=== PATIENT | male | born 1970 | race Caucasian/White ===

== ENCOUNTER 2023-07-01 13:52 | Emergency (ER) | payer MEDICARE ==
[2023-07-01] VITALS (13 sets, daily range): BP systolic 124–159; BP diastolic 61–91
[~2023-07-01] VITALS: Ht 180.3 cm; Wt 115.6 kg
[2023-07-01 15:28] LABS: BASO% 0.9 % (0-3); EOS% 7.7 % (0-8); HEMATOCRIT 41.9 % (39.0-50.0); HEMOGLOBIN 13.8 g/dl (14.0-18.0); IMMATURE GRANULOCYTES 0.4 % (0.0-5.0); LYMPH% 20.8 % (15-41); MEAN CELL VOLUME 82.2 fL CALC (80.0-100.0); MEAN CORPUSCULAR HGB 27.1 pG CALC (26.0-32.0); MEAN CORPUSCULAR HGB CONC 32.9 g/dL CAL (32.0-36.0); MONO% 7.6 % (2-13); NEUT# 8.07 thou/uL (1.82-7.42); NEUT% 62.6 % (42-76); RED BLOOD COUNT 5.1 mill/uL (4.70-6.10)
[2023-07-01 15:40] LABS: ALBUMIN 4.4 g/dL (3.2-5.0); BILIRUBIN, TOTAL 0.6 mg/dL (0.2-1.3); CREATININE 2.1 mg/dL (0.7-1.3); POTASSIUM 3.8 mmol/l (3.5-5.1); TOTAL PROTEIN 8.1 g/dL (6.3-8.2)
== END 2023-07-01 19:55 | disposition left against medical advice (07) ==
LOC: ED 13:52
PROVIDERS: Family Medicine
DX: E11.621 Type 2 diabetes mellitus with foot ulcer (principal); L97.429 Non-pressure chronic ulcer of left heel and midfoot with unspecified severity; E11.610 Type 2 diabetes mellitus with diabetic neuropathic arthropathy; E11.22 Type 2 diabetes mellitus with diabetic chronic kidney disease; N18.32 Chronic kidney disease, stage 3b; Z86.14 Personal history of Methicillin resistant Staphylococcus aureus infection; Z89.511 Acquired absence of right leg below knee; Z20.822 Contact with and (suspected) exposure to COVID-19; Z53.29 Procedure and treatment not carried out because of patient's decision for other reasons

== ENCOUNTER 2024-10-09 02:49 | Observation (INO) | payer MEDICARE ==
[2024-10-09] VITALS (13 sets, daily range): BP systolic 156–183; BP diastolic 78–100
[~2024-10-09] VITALS: Ht 180.3 cm; Wt 108.6 kg
[~2024-10-09 02:49] MED LIST: AMLODIPINE BESYL5 MG PO; FARXIGA10 MG PO; GABAPENTIN300 M2 PO; HUMULIN R SC; LOPRESSOR 550 MG/TAB PO; LOSARTAN POTASS50 MG PO; PRAMIPEXOLE DI0.5 MG PO; ROSUVASTATIN CA10 MG PO
--- NOTE | 2024-10-09 03:15 | NUR ---
PT ARRIVED TO ROOM 3 FOR TRIAGE AT BEDSIDE.
[2024-10-09] MEDS ORDERED: SODIUM CHLORIDE 0.9% 1,000 ML IV STA (03:19)
[2024-10-09] MEDS ORDERED: KETOROLAC TROMETHAMINE 30 MG/ML SDV IV ONE (03:20)
[2024-10-09] MEDS ORDERED: PROMETHAZINE HCL 25 MG/ML AMP IV ONE (03:20)
[2024-10-09 03:42] LABS: BASO% 0.6 % (0-3); EOS% 0.4 % (0-8); HEMATOCRIT 39.4 % (39.0-50.0); HEMOGLOBIN 13.1 g/dl (14.0-18.0); IMMATURE GRANULOCYTES 0.8 % (0.0-5.0); LYMPH% 11.9 % (15-41); MEAN CELL VOLUME 82.3 fL CALC (80.0-100.0); MEAN CORPUSCULAR HGB 27.3 pG CALC (26.0-32.0); MEAN CORPUSCULAR HGB CONC 33.2 g/dL CAL (32.0-36.0); MONO% 8.2 % (2-13); NEUT# 9.93 thou/uL (1.82-7.42); NEUT% 78.1 % (42-76); RED BLOOD COUNT 4.79 mill/uL (4.70-6.10)
[2024-10-09 03:58] LABS: CREATININE 2.1 mg/dL (0.7-1.3); MAGNESIUM 1.9 mg/dL (1.6-2.3)
[2024-10-09 04:01] LABS: ALBUMIN 4.8 g/dL (3.2-5.0); BILIRUBIN, TOTAL 0.6 mg/dL (0.2-1.3); TOTAL PROTEIN 8.3 g/dL (6.3-8.2)
--- NOTE | 2024-10-09 05:31 | NUR ---
Pt. rechecked post pain med administration. Pain level (1-10): 0/10 Pain better/worse: BETTER PER PT NAUSEA HAS RESOLVED AT THIS TIME. URINE COLLECTED AND SENT TO LAB.
[2024-10-09 05:37] LABS: URINE BLOOD DIPSTICK Small (NEGATIVE); URINE GLUCOSE - DIPSTICK 500 mg/dL (NEGATIVE); URINE KETONE Negative (NEGATIVE); URINE LEUK ESTERASE Negative (NEGATIVE); URINE NITRITE - DIPSTICK Negative (Negative); URINE PH 5.5 (4.5-8.0); URINE PROTEIN - DIPSTICK >=300 mg/dL (NEG-TRACE); URINE UROBILINOGEN - DIPSTICK 0.2 E.U./dL (0.2)
[2024-10-09 05:46] LABS: URINE BILIRUBIN - DIPSTICK Negative (NEGATIVE); URINE COLOR Yellow
[2024-10-09 05:47] LABS: URINE BACTERIA MODERATE hpf; URINE EPITHELIAL CELLS FEW EPI/hpf (0-FEW)
[2024-10-09 05:48] LABS: URINE COARSE GRANULAR CAST RARE lpf; URINE FINE GRAN CAST FEW lpf; URINE HYALINE CAST RARE lpf (NONE-RARE)
[2024-10-09] MEDS ORDERED: SODIUM CHLORIDE 0.9% 1,000 ML IV ONE (06:20)
[2024-10-09] MEDS ORDERED: LABETALOL HCL 20 MG/ 4 ML CARTRG IV ONE (06:30)
--- NOTE | 2024-10-09 07:31 | NUR ---
Reassessment of patient completed. No distress noted.
[2024-10-09] MEDS ORDERED: FENOFIBRATE160 MG PO (08:11)
[2024-10-09] MEDS ORDERED: ICOSAPENT ETHYL1 GM PO (08:14)
[2024-10-09] MEDS ORDERED: MAGNESIUM HYDROXIDE 30 ML UDC PO PRN (08:15)
[2024-10-09] MEDS ORDERED: SODIUM CHLORIDE 0.9% 1,000 ML IV PRN (08:15)
[2024-10-09] MEDS ORDERED: ACETAMINOPHEN 325 MG/TAB PO PRN (08:15)
--- NOTE | 2024-10-09 08:35 | NUR ---
FIRST ATTEMPT TO CALL REPORT, NURSE TO RETURN CALL
--- NOTE | 2024-10-09 09:21 | NUR ---
NURSE TO NURSE REPORT COMPLETED
--- NOTE | 2024-10-09 09:27 | NUR ---
PATIENT ARRIVED TO SD FROM THE ED TO ROOM 273. PATIENT A&OX3. BREATHING UNLABORED ON ROOM AIR. IV IN LAC SL;SITE CLEAN AND INTACT. PT DENIES ANY PAIN OR N/D/V AT THIS TIME. ASSESSMENT COMPLETED. 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 PT EDUCATED SUPERVISOR WET ROOM LIGHT USE;PT VERBALIZED UNDERSTANDING OF USE. BED IN LOWEST POSITION. PERSONAL ITEMS WITHIN REACH. NO OTHER NEEDS AT THIS TIME. POC ONGOING.
[2024-10-09] MEDS ORDERED: DEXTROSE 250 ML IV PRN (10:10)
[2024-10-09] MEDS ORDERED: METOPROLOL TARTRATE 50 MG/TAB PO SCH (11:00)
[2024-10-09] MEDS ORDERED: INSULIN LISPRO 100 UNITS/ML ML SC SCH (11:00)
[2024-10-09] MEDS ORDERED: amLODIPine BESYLATE 5 MG/TAB PO SCH (11:00)
[2024-10-09] MEDS ORDERED: Pantoprazole Sodium 40 MG VIAL (Protonix) IV SCH (11:00)
--- NOTE | 2024-10-09 12:44 | NUR ---
PATIENT SITTING UP IN BED WATCHING TV. BREATHING UNLABORED ON ROOM AIR. IV INFUSING FLUIDS PER EMAR;SITE CLEAN AND INTACT. PT DENIES ANY PAIN OR N/D/V AT THIS TIME. BED IN LOWEST POSITION. CALL LIGHT WITHIN REACH. POC ONGOING
--- NOTE | 2024-10-09 13:25 | NUR ---
Patient does not meet criteria for flu vaccine administration. Flucelvax administered on 07/14/24 per immunization records.
[2024-10-09] MEDS ORDERED: Heparin SODIUM (Porcine) 5,000 UNITS/ML SDV SC SCH (14:00)
--- NOTE | 2024-10-09 16:20 | NUR ---
PATIENT LYING IN BED WATCHING TV. BREATHING UNLABORED ON ROOM AIR. IV INFUSING FLUIDS PER EMAR;SITE CLEAN AND INTACT. PT DENIES ANY PAIN OR NEEDING ANYTHING AT THIS TIME. BED IN LOWEST POSITION. NO NEEDS AT THIS TIME. POC ONGOING.
--- NOTE | 2024-10-09 19:15 | NUR ---
PATIENT OBSERVED SITTING UP IN BED. ALERT AND ABLE TO MAKE NEEDS KNOWN. ASSESSMENT COMPLETE. DRESSING TO BOTTOM OF LEFT FOOT CDI. NO COMPLAINTS OF PAIN TO SITE. NO DISTRESS NOTED. SPOKE WITH PATIENT ABOUT HIS INSULIN PUMP. PER DOCTORS NOTE PATIENT IS TO HAVE INSULIN PER EMAR, AND HIS INSULIN PUMP ON HOLD. PER PATIENT HE IS REFUSING OUR SLIDING SCALE AND VOICED THAT HIS INSULIN IS DIFFERENT AND THAT HE CAN SHUT HIS PUMP OFF BUT AFTER 2 HOURS IT TURNS BACK ON BY ITSELF. PATIENT IS ALLOWING STAFF TO CHECK HIS BLOOD SUGAR WITH OUR HOSPITAL MACHINES. PATIENTS RIGHT LEG PROSTHETIC IS IN ROOM. HE DENIES NEEDING ANYTHING AT THIS TIME. BED IN LOW POSITION. CALL [facility] IN REACH.
--- NOTE | 2024-10-09 21:19 | NUR ---
INFORMED ASSISTANT WAREHOUSE MANAGER PROVIDER OF PATIENT REFUSING OUR INSULIN PER DOCTORS ORDERS AND WANTING TO USE HIS INSULIN PUMP STILL.
[2024-10-09] MEDS ORDERED: losartan PO (22:00)
--- NOTE | 2024-10-10 00:15 | NUR ---
PATIENT REMAINS RESTING IN BED. DENIES NEEDING ANYTHING AT THIS TIME. NO COMPLAINTS AT THIS TIME. BED REMAINS IN LOW POSITION. CALL [facility] IN REACH.
[2024-10-10 03:43] VITALS: BP 155/98
--- NOTE | 2024-10-10 03:43 | NUR ---
PATIENT REMAINS RESTING IN BED. DENIES NEEDING ANYTHING AT THIS TIME. BED REMAINS IN LOW POSITION. CALL [facility] IN REACH.
[2024-10-10 05:29] LABS: BASO% 0.7 % (0-3); EOS% 4.2 % (0-8); HEMATOCRIT 38.6 % (39.0-50.0); HEMOGLOBIN 12.6 g/dl (14.0-18.0); IMMATURE GRANULOCYTES 0.4 % (0.0-5.0); MEAN CORPUSCULAR HGB 27.1 pG CALC (26.0-32.0); MEAN CORPUSCULAR HGB CONC 32.6 g/dL CAL (32.0-36.0); MONO% 9.4 % (2-13); NEUT# 6.24 thou/uL (1.82-7.42); NEUT% 61.3 % (42-76); RED BLOOD COUNT 4.65 mill/uL (4.70-6.10); RED CELL DISTRI WIDTH 13.4 % (11.5-15.5)
[2024-10-10 05:52] LABS: BILIRUBIN, TOTAL 0.5 mg/dL (0.2-1.3); CHOLESTEROL HDL RATIO 3.6 (<4.4 (CALC)); CREATININE 1.8 mg/dL (0.7-1.3); MAGNESIUM 1.9 mg/dL (1.6-2.3); TOTAL PROTEIN 6.9 g/dL (6.3-8.2)
--- NOTE | 2024-10-10 06:19 | NUR ---
INFORMED CARDIOGRAPH OPERATOR PROVIDER OF PATIENTS CRITICAL GLUCOSE. DIET ADVANCED PER PROVIDER.
--- NOTE | 2024-10-10 06:24 | NUR ---
GLUCOSE CHECKED BY STAFF, 112.
--- NOTE | 2024-10-10 07:55 | NUR ---
PATIENT AWAKE SITTING UP IN BED;A&OX3. BREATHING UNLABORED ON ROOM AIR. IV IN LAC SL;SITE CLEAN AND INTACT. PT DENIES ANY PAIN OR N/D/V AT THIS TIME. PT STATES HE WOULD LIKE TO GO HOME;INFORMED HIM THAT THE DOCTOR WILL BE IN SHORTLY TO DISCUSS POC. NO OTHER NEEDS AT THIS TIME. BED IN LOWEST POSITION. CALL LIGHT WITHIN REACH. POC ONGOING.
[2024-10-10 08:26] VITALS: BP 155/98
--- NOTE | 2024-10-10 10:50 | NUR ---
Discharge instructions given. Patient verbalizes understanding of same. Discharged in stable condition via Ambulatory to Home with spouse. All belongings sent with pt.
== END 2024-10-10 10:49 | disposition home or self-care (01) ==
LOC: ED 02:49 → ED-I 07:30 → ED 07:55 → MS2 07:56
PROVIDERS: Family Medicine; Nurse Practitioner Family; ADMIT Internal Medicine; ATTEND Internal Medicine
DX: K85.90 Acute pancreatitis without necrosis or infection, unspecified (principal); N17.9 Acute kidney failure, unspecified; E86.0 Dehydration; I12.9 Hypertensive chronic kidney disease with stage 1 through stage 4 chronic kidney disease, or unspecified chronic kidney disease; E11.22 Type 2 diabetes mellitus with diabetic chronic kidney disease; N18.30 Chronic kidney disease, stage 3 unspecified; E11.621 Type 2 diabetes mellitus with foot ulcer; L97.428 Non-pressure chronic ulcer of left heel and midfoot with other specified severity; E11.610 Type 2 diabetes mellitus with diabetic neuropathic arthropathy; Z79.4 Long term (current) use of insulin; Z89.511 Acquired absence of right leg below knee; Z79.899 Other long term (current) drug therapy; Z89.422 Acquired absence of other left toe(s)
CPT/HCPCS: G0378; J1644; J1815; J2470; J2550

== ENCOUNTER 2024-11-02 13:34 | Inpatient (IN) | payer MEDICARE ==
[2024-11-02] VITALS (39 sets, daily range): BP systolic 134–208; BP diastolic 75–111
[~2024-11-02] VITALS: Ht 180.3 cm; Wt 107.0 kg
[~2024-11-02 13:34] MED LIST changes: +FENOFIBRATE160 MG PO; +ICOSAPENT ETHYL1 GM PO; +losartan PO
[2024-11-02] MEDS ORDERED: LOSARTAN POTASS50 MG PO (13:53)
[2024-11-02] MEDS ORDERED: HUMULIN R500 UNIT/M (13:53)
[2024-11-02] MEDS ORDERED: DULOXETINE HCL30 MG PO (13:55)
[2024-11-02] MEDS ORDERED: SODIUM CHLORIDE 0.9% 1,000 ML IV ONE ×2 (13:55→15:25)
[2024-11-02] MEDS ORDERED: DULOXETINE HCL60 MG PO (13:55)
[2024-11-02] MEDS ORDERED: ONDANSETRON HCl 4 MG/2 ML SDV IV ONE (13:55)
[2024-11-02 14:20] LABS: BASO% 0.8 % (0-3); HEMATOCRIT 40.3 % (39.0-50.0); HEMOGLOBIN 13.3 g/dl (14.0-18.0); IMMATURE GRANULOCYTES 0.3 % (0.0-5.0); LYMPH% 15.1 % (15-41); MEAN CELL VOLUME 81.1 fL CALC (80.0-100.0); MEAN CORPUSCULAR HGB 26.8 pG CALC (26.0-32.0); MONO% 5.5 % (2-13); NEUT# 8.37 thou/uL (1.82-7.42); NEUT% 76.3 % (42-76); RED BLOOD COUNT 4.97 mill/uL (4.70-6.10); RED CELL DISTRI WIDTH 12.8 % (11.5-15.5)
[2024-11-02 14:25] LABS: BILIRUBIN, TOTAL 0.7 mg/dL (0.2-1.3); BUN 42 mg/dL (9-20); BUN/CREATININE RATIO 20 (12-20 (CALC)); CHLORIDE 96 mmol/l (95-108); CREATININE 2.1 mg/dL (0.7-1.3); ESTIMATED GFR 36 ML/MIN (>=90 (CALC)); POTASSIUM 4.8 mmol/l (3.5-5.1); SGOT/AST 32 u/l (17-59)
[2024-11-02 14:35] LABS: URINE BILIRUBIN - DIPSTICK Negative (NEGATIVE); URINE BLOOD DIPSTICK Trace-lysed (NEGATIVE); URINE GLUCOSE - DIPSTICK 500 mg/dL (NEGATIVE); URINE KETONE 15 mg/dL (NEGATIVE); URINE LEUK ESTERASE Negative (NEGATIVE); URINE NITRITE - DIPSTICK Negative (Negative); URINE PH 5.5 (4.5-8.0); URINE PROTEIN - DIPSTICK 100 mg/dL (NEG-TRACE); URINE SPECIFIC GRAVITY 1.015; URINE UROBILINOGEN - DIPSTICK 0.2 E.U./dL (0.2)
[2024-11-02 14:36] LABS: ALBUMIN 4.9 g/dL (3.2-5.0); ALKALINE PHOSPHATASE 110 u/l (38-126); ANION GAP 27 (6-22 (CALC)); CARBON DIOXIDE 15 mmol/l (22-30); SODIUM 133 mmol/l (137-146); TOTAL PROTEIN 8.4 g/dL (6.3-8.2)
[2024-11-02 14:47] LABS: URINE COLOR Yellow
[2024-11-02 14:50] LABS: URINE COARSE GRANULAR CAST FEW lpf; URINE SQUAMOUS EPITHELIAL CELL FEW EPI/hpf (0-FEW)
[2024-11-02 14:55] LABS: LIPASE 2089 u/l (23-300)
[2024-11-02] MEDS ORDERED: INSULIN REGULAR (HUMAN) 100 UNIT/ML INJ IV ONE (15:05)
[2024-11-02] MEDS ORDERED: INSULIN REGULAR (HUMAN) IN SOD 100 ML IV ONE (15:05)
[2024-11-02] MEDS ORDERED: POTASSIUM CHLORIDE 20MEQ 100 ML IV PRN (16:55)
[2024-11-02] MEDS ORDERED: DEXTROSE 5% w/NACL 0.45 1,000 ML IV PRN (16:55)
[2024-11-02] MEDS ORDERED: INSULIN REGULAR (HUMAN) IN SOD 100 ML IV PRN (16:55)
[2024-11-02] MEDS ORDERED: D5 1/2 NaCL W/KCL 20MEQ 1,000 ML IV PRN (16:55)
[2024-11-02] MEDS ORDERED: LACTATED RINGER'S 1,000 ML IV PRN (17:00)
[2024-11-02] MEDS ORDERED: HYDROmorphone HCL 2 MG/AMP IV PRN (17:00)
[2024-11-02] MEDS ORDERED: INSULIN PUMP (19:00)
[2024-11-02 20:22] LABS: POTASSIUM 4.1 mmol/l (3.5-5.1)
[2024-11-03] VITALS (36 sets, daily range): BP systolic 132–210; BP diastolic 66–121
[2024-11-03 00:58] LABS: CREATININE 1.9 mg/dL (0.7-1.3); POTASSIUM 4.2 mmol/l (3.5-5.1)
[2024-11-03] MEDS ORDERED: hydrALAZINE HCL 20 MG/ML VIAL(1 ML) IV PRN ×2 (02:35→18:35)
[2024-11-03 05:11] LABS: BASO% 0.7 % (0-3); EOS% 3.8 % (0-8); HEMATOCRIT 39.5 % (39.0-50.0); HEMOGLOBIN 13.3 g/dl (14.0-18.0); IMMATURE GRANULOCYTES 0.3 % (0.0-5.0); LYMPH% 19.9 % (15-41); MEAN CELL VOLUME 81.6 fL CALC (80.0-100.0); MEAN CORPUSCULAR HGB 27.5 pG CALC (26.0-32.0); MEAN CORPUSCULAR HGB CONC 33.7 g/dL CAL (32.0-36.0); NEUT# 6.8 thou/uL (1.82-7.42); NEUT% 67.3 % (42-76); RED BLOOD COUNT 4.84 mill/uL (4.70-6.10); RED CELL DISTRI WIDTH 12.8 % (11.5-15.5)
[2024-11-03] MEDS ORDERED: LABETALOL HCL 20 MG/ 4 ML CARTRG IV SCH (05:20)
[2024-11-03 05:31] LABS: ALBUMIN 4.4 g/dL (3.2-5.0); BILIRUBIN, TOTAL 0.5 mg/dL (0.2-1.3); CREATININE 1.8 mg/dL (0.7-1.3); MAGNESIUM 2.1 mg/dL (1.6-2.3); POTASSIUM 4.3 mmol/l (3.5-5.1); TOTAL PROTEIN 7.6 g/dL (6.3-8.2)
[2024-11-03] MEDS ORDERED: ONDANSETRON HCl 4 MG/2 ML SDV IV PRN (06:25)
[2024-11-03 07:44] LABS: AMYLASE 138 u/l (30-110); LIPASE 801 u/l (23-300)
[2024-11-03] MEDS ORDERED: DEXTROSE 250 ML IV PRN (08:50)
[2024-11-03] MEDS ORDERED: SODIUM CHLORIDE 0.9% 1,000 ML IV PRN (08:50)
[2024-11-03] MEDS ORDERED: INSULIN GLARGINE 100 UNITS/ML SC SCH ×2 (09:30→11:30)
[2024-11-03 09:53] LABS: CREATININE 1.8 mg/dL (0.7-1.3); POTASSIUM 4.2 mmol/l (3.5-5.1)
[2024-11-03] MEDS ORDERED: INSULIN LISPRO 100 UNITS/ML ML SC SCH ×2 (11:00→11:30)
[2024-11-03] MEDS ORDERED: amLODIPine BESYLATE 5 MG/TAB PO SCH ×2 (13:00→16:00)
[2024-11-03] MEDS ORDERED: LOSARTAN Potassium 50 MG/TAB PO SCH ×2 (13:00→16:00)
[2024-11-03] MEDS ORDERED: METOPROLOL TARTRATE 50 MG/TAB PO SCH (13:00)
[2024-11-04] VITALS (23 sets, daily range): BP systolic 101–176; BP diastolic 44–86
[2024-11-04 05:19] LABS: BILIRUBIN, TOTAL 0.6 mg/dL (0.2-1.3); CREATININE 1.7 mg/dL (0.7-1.3); MAGNESIUM 1.9 mg/dL (1.6-2.3); POTASSIUM 3.9 mmol/l (3.5-5.1); TOTAL PROTEIN 6.2 g/dL (6.3-8.2)
[2024-11-04 05:22] LABS: ALBUMIN 3.5 g/dL (3.2-5.0)
[2024-11-04 05:34] LABS: BASO% 0.5 % (0-3); EOS% 3.4 % (0-8); HEMATOCRIT 36.9 % (39.0-50.0); HEMOGLOBIN 12.1 g/dl (14.0-18.0); IMMATURE GRANULOCYTES 0.3 % (0.0-5.0); LYMPH% 17.9 % (15-41); MEAN CELL VOLUME 83.1 fL CALC (80.0-100.0); MEAN CORPUSCULAR HGB 27.3 pG CALC (26.0-32.0); MEAN CORPUSCULAR HGB CONC 32.8 g/dL CAL (32.0-36.0); NEUT# 7.02 thou/uL (1.82-7.42); NEUT% 69.9 % (42-76); RED BLOOD COUNT 4.44 mill/uL (4.70-6.10); RED CELL DISTRI WIDTH 13.1 % (11.5-15.5)
[2024-11-04] MEDS ORDERED: INSULIN GLARGINE 100 UNITS/ML SC SCH ×2 (09:00)
[2024-11-04] MEDS ORDERED: LOSARTAN Potassium 50 MG/TAB PO SCH (09:00)
[2024-11-04] MEDS ORDERED: PNEUMOCOCCAL 20-VALENT CONJUGA 0.5 ML/DOSE INJ IM SCH (09:00)
[2024-11-04] MEDS ORDERED: amLODIPine BESYLATE 5 MG/TAB PO SCH (09:00)
[2024-11-04] MEDS ORDERED: MUPIROCIN (PSEUDOMONAS FLUORES 22 GM/TUBE TUBE TOP SCH (10:00)
[2024-11-04] MEDS ORDERED: CEFEPIME HYDROCHLORIDE 1 GM in SODIUM CHLORIDE 0.9% 50 ML IV SCH (10:00)
[2024-11-04] MEDS ORDERED: VANCOMYCIN HCL 1 GM in SODIUM CHLORIDE 0.9% 250 ML IV SCH (10:00)
[2024-11-04] MEDS ORDERED: INSULIN LISPRO 100 UNITS/ML ML SC SCH (11:00)
[2024-11-04] MEDS ORDERED: GABAPENTIN 300 MG/CAP PO SCH (12:00)
[2024-11-05] VITALS (13 sets, daily range): BP systolic 107–176; BP diastolic 56–99
[2024-11-05 05:51] LABS: ALBUMIN 3.5 g/dL (3.2-5.0); BILIRUBIN, TOTAL 0.4 mg/dL (0.2-1.3); CREATININE 1.7 mg/dL (0.7-1.3); MAGNESIUM 1.8 mg/dL (1.6-2.3); POTASSIUM 3.9 mmol/l (3.5-5.1); TOTAL PROTEIN 6.2 g/dL (6.3-8.2)
[2024-11-05 06:03] LABS: BASO% 0.8 % (0-3); EOS% 4.4 % (0-8); HEMATOCRIT 36.4 % (39.0-50.0); HEMOGLOBIN 11.8 g/dl (14.0-18.0); IMMATURE GRANULOCYTES 0.3 % (0.0-5.0); LYMPH% 14.5 % (15-41); MEAN CELL VOLUME 83.7 fL CALC (80.0-100.0); MEAN CORPUSCULAR HGB 27.1 pG CALC (26.0-32.0); MEAN CORPUSCULAR HGB CONC 32.4 g/dL CAL (32.0-36.0); MONO% 10.5 % (2-13); NEUT# 6.33 thou/uL (1.82-7.42); NEUT% 69.5 % (42-76); RED BLOOD COUNT 4.35 mill/uL (4.70-6.10); RED CELL DISTRI WIDTH 13.3 % (11.5-15.5)
[2024-11-05] MEDS ORDERED: PNEUMOCOCCAL 20-VALENT CONJUGA 0.5 ML/DOSE INJ IM SCH (09:00)
[2024-11-05] MEDS ORDERED: INSULIN GLARGINE 100 UNITS/ML SC SCH (13:00)
[2024-11-06] VITALS (8 sets, daily range): BP systolic 102–173; BP diastolic 50–90
[2024-11-06 05:44] LABS: HEMATOCRIT 34.8 % (39.0-50.0); HEMOGLOBIN 11.5 g/dl (14.0-18.0); MEAN CELL VOLUME 82.7 fL CALC (80.0-100.0); MEAN CORPUSCULAR HGB 27.3 pG CALC (26.0-32.0); RED BLOOD COUNT 4.21 mill/uL (4.70-6.10); RED CELL DISTRI WIDTH 13.1 % (11.5-15.5)
[2024-11-06 06:10] LABS: ALBUMIN 3.3 g/dL (3.2-5.0); BILIRUBIN, TOTAL 0.3 mg/dL (0.2-1.3); CREATININE 1.4 mg/dL (0.7-1.3); POTASSIUM 3.3 mmol/l (3.5-5.1); TOTAL PROTEIN 6.1 g/dL (6.3-8.2)
[2024-11-06] MEDS ORDERED: INSULIN GLARGINE 100 UNITS/ML SC SCH (09:00)
[2024-11-06] MEDS ORDERED: CEFEPIME HYDROCHLORIDE 2 GM in SODIUM CHLORIDE 0.9% 100 ML IV SCH (22:00)
[2024-11-07] VITALS (18 sets, daily range): BP systolic 114–185; BP diastolic 64–98
[2024-11-07 05:22] LABS: HEMATOCRIT 33.1 % (39.0-50.0); MEAN CELL VOLUME 81.7 fL CALC (80.0-100.0); MEAN CORPUSCULAR HGB 27.2 pG CALC (26.0-32.0); MEAN CORPUSCULAR HGB CONC 33.2 g/dL CAL (32.0-36.0); RED BLOOD COUNT 4.05 mill/uL (4.70-6.10); RED CELL DISTRI WIDTH 13.2 % (11.5-15.5)
[2024-11-07 05:35] LABS: ALBUMIN 3.4 g/dL (3.2-5.0); BILIRUBIN, TOTAL 0.4 mg/dL (0.2-1.3); CREATININE 1.4 mg/dL (0.7-1.3); POTASSIUM 3.9 mmol/l (3.5-5.1); TOTAL PROTEIN 6.3 g/dL (6.3-8.2)
[2024-11-07] MEDS ORDERED: VANCOMYCIN HCL 750 MG in SODIUM CHLORIDE 0.9% 235 ML IV SCH (12:00)
[2024-11-07] MEDS ORDERED: INSULIN LISPRO 100 UNITS/ML ML SC SCH (17:57)
[2024-11-08] VITALS (8 sets, daily range): BP systolic 118–157; BP diastolic 68–81
[2024-11-08 05:39] LABS: BASO% 0.9 % (0-3); EOS% 6.6 % (0-8); HEMATOCRIT 30.5 % (39.0-50.0); HEMOGLOBIN 10.1 g/dl (14.0-18.0); IMMATURE GRANULOCYTES 0.3 % (0.0-5.0); LYMPH% 18.1 % (15-41); MEAN CELL VOLUME 82.7 fL CALC (80.0-100.0); MEAN CORPUSCULAR HGB 27.4 pG CALC (26.0-32.0); MEAN CORPUSCULAR HGB CONC 33.1 g/dL CAL (32.0-36.0); MONO% 11.8 % (2-13); NEUT# 5.36 thou/uL (1.82-7.42); NEUT% 62.3 % (42-76); RED BLOOD COUNT 3.69 mill/uL (4.70-6.10); RED CELL DISTRI WIDTH 13.4 % (11.5-15.5)
[2024-11-08 05:42] LABS: ALBUMIN 3.3 g/dL (3.2-5.0); CREATININE 1.5 mg/dL (0.7-1.3); POTASSIUM 4.1 mmol/l (3.5-5.1); TOTAL PROTEIN 5.8 g/dL (6.3-8.2)
[2024-11-08 06:24] LABS: BILIRUBIN, TOTAL 0.2 mg/dL (0.2-1.3)
[2024-11-08] MEDS ORDERED: INSULIN GLARGINE 100 UNITS/ML SC SCH (21:00)
[2024-11-09] VITALS (10 sets, daily range): BP systolic 126–164; BP diastolic 68–92
[2024-11-09] MEDS ORDERED: VANCOMYCIN HCL 500 MG in SODIUM CHLORIDE 0.9% 250 ML IV SCH (12:00)
[2024-11-09] MEDS ORDERED: PATIENT' OWN MED 1 EA DOSE PO SCH (17:00)
[2024-11-09] MEDS ORDERED: SODIUM CHLORIDE 0.9% 1,000 ML IV PRN (20:05)
[2024-11-10] VITALS (11 sets, daily range): BP systolic 120–183; BP diastolic 67–97
[2024-11-10 05:07] LABS: HEMATOCRIT 32.5 % (39.0-50.0); HEMOGLOBIN 10.6 g/dl (14.0-18.0); MEAN CELL VOLUME 82.7 fL CALC (80.0-100.0); MEAN CORPUSCULAR HGB CONC 32.6 g/dL CAL (32.0-36.0); RED BLOOD COUNT 3.93 mill/uL (4.70-6.10); RED CELL DISTRI WIDTH 13.2 % (11.5-15.5)
[2024-11-10 05:29] LABS: ALBUMIN 3.8 g/dL (3.2-5.0); CREATININE 1.6 mg/dL (0.7-1.3); POTASSIUM 4.1 mmol/l (3.5-5.1); TOTAL PROTEIN 6.7 g/dL (6.3-8.2)
[2024-11-10 05:37] LABS: BILIRUBIN, TOTAL 0.4 mg/dL (0.2-1.3)
[2024-11-10] MEDS ORDERED: FAMOTIDINE 10MG/ML 2ML SDV IV ONE (10:56)
[2024-11-10] MEDS ORDERED: BUPIVACAINE HCL PF 0.5% 30 ML VIAL ONE (11:05)
[2024-11-10] MEDS ORDERED: SODIUM CHLORIDE 0.9% 1,000 ML BAG IV ONE (12:05)
[2024-11-10] MEDS ORDERED: LIDOCAINE HCL 2% 2ML SDV IV ONE (12:05)
[2024-11-10] MEDS ORDERED: PROPOFOL 200 MG/20 ML VIAL IV ONE (12:05)
[2024-11-10] MEDS ORDERED: STERILE WATER FOR IRRIGATION 1,000 ML BTL IR ONE (14:16)
[2024-11-10] MEDS ORDERED: INSULIN GLARGINE 100 UNITS/ML SC SCH (21:00)
[2024-11-11] VITALS (8 sets, daily range): BP systolic 119–158; BP diastolic 58–79
[2024-11-11 05:37] LABS: BASO% 0.7 % (0-3); EOS% 2.8 % (0-8); HEMATOCRIT 29.2 % (39.0-50.0); HEMOGLOBIN 9.5 g/dl (14.0-18.0); IMMATURE GRANULOCYTES 0.3 % (0.0-5.0); LYMPH% 9.2 % (15-41); MEAN CELL VOLUME 83.4 fL CALC (80.0-100.0); MEAN CORPUSCULAR HGB 27.1 pG CALC (26.0-32.0); MEAN CORPUSCULAR HGB CONC 32.5 g/dL CAL (32.0-36.0); MONO% 12.9 % (2-13); NEUT# 7.31 thou/uL (1.82-7.42); NEUT% 74.1 % (42-76); RED BLOOD COUNT 3.5 mill/uL (4.70-6.10); RED CELL DISTRI WIDTH 13.1 % (11.5-15.5)
[2024-11-11 06:03] LABS: ALBUMIN 3.4 g/dL (3.2-5.0); BILIRUBIN, TOTAL 0.3 mg/dL (0.2-1.3); CREATININE 1.9 mg/dL (0.7-1.3); MAGNESIUM 1.5 mg/dL (1.6-2.3); POTASSIUM 4.8 mmol/l (3.5-5.1); TOTAL PROTEIN 6.1 g/dL (6.3-8.2)
[2024-11-11] MEDS ORDERED: MAGNESIUM SULFATE HEPTAHYDRATE 50 ML IV SCH (08:30)
[2024-11-11] MEDS ORDERED: PATIENT' OWN MED 1 EA DOSE SC PRN (12:15)
[2024-11-11] MEDS ORDERED: GABAPENTIN 100 MG/CAP PO SCH (15:00)
[2024-11-11] MEDS ORDERED: GABAPENTIN 300 MG/CAP PO SCH (15:00)
[2024-11-12] VITALS: BP 129/77
[2024-11-12 04:00] VITALS: BP 116/71
[2024-11-12 06:08] LABS: ALBUMIN 3.4 g/dL (3.2-5.0); BILIRUBIN, TOTAL 0.3 mg/dL (0.2-1.3); POTASSIUM 4.1 mmol/l (3.5-5.1); TOTAL PROTEIN 6.2 g/dL (6.3-8.2)
[2024-11-12 06:10] LABS: BASO% 0.6 % (0-3); EOS% 4.8 % (0-8); HEMATOCRIT 27.2 % (39.0-50.0); HEMOGLOBIN 9.2 g/dl (14.0-18.0); IMMATURE GRANULOCYTES 0.5 % (0.0-5.0); LYMPH% 18.8 % (15-41); MEAN CELL VOLUME 83.2 fL CALC (80.0-100.0); MEAN CORPUSCULAR HGB 28.1 pG CALC (26.0-32.0); MEAN CORPUSCULAR HGB CONC 33.8 g/dL CAL (32.0-36.0); MONO% 17.1 % (2-13); NEUT# 5.64 thou/uL (1.82-7.42); NEUT% 58.2 % (42-76); RED BLOOD COUNT 3.27 mill/uL (4.70-6.10); RED CELL DISTRI WIDTH 13.1 % (11.5-15.5)
[2024-11-12 06:13] LABS: CREATININE 1.8 mg/dL (0.7-1.3)
[2024-11-12 08:26] VITALS: BP 116/69
[2024-11-12] MEDS ORDERED: SODIUM CHLORIDE 0.9% 100 ML IV ONE (12:04)
[2024-11-12] MEDS ORDERED: cefTRIAXone SODIUM 2 GM in SODIUM CHLORIDE 0.9% 100 ML IV SCH (13:00)
[2024-11-12] MEDS ORDERED: DAPTOMYCIN/SODI1 IN2 IV (13:32)
[2024-11-12] MEDS ORDERED: CEFTRIAXONE2 GM IV (13:32)
[2024-11-12 17:02] VITALS: BP 116/64
[2024-11-12 18:30] VITALS: BP 127/67
[2024-11-12 20:36] VITALS: BP 136/62
[2024-11-13] VITALS (11 sets, daily range): BP systolic 116–139; BP diastolic 57–73
[2024-11-13 05:59] LABS: BASO% 0.7 % (0-3); EOS% 4.6 % (0-8); HEMATOCRIT 27.5 % (39.0-50.0); HEMOGLOBIN 8.7 g/dl (14.0-18.0); IMMATURE GRANULOCYTES 0.5 % (0.0-5.0); LYMPH% 18.2 % (15-41); MEAN CORPUSCULAR HGB 27.5 pG CALC (26.0-32.0); MEAN CORPUSCULAR HGB CONC 31.6 g/dL CAL (32.0-36.0); MONO% 14.5 % (2-13); NEUT# 5.24 thou/uL (1.82-7.42); NEUT% 61.5 % (42-76); RED BLOOD COUNT 3.16 mill/uL (4.70-6.10); RED CELL DISTRI WIDTH 13.2 % (11.5-15.5)
[2024-11-13 06:19] LABS: ALBUMIN 3.3 g/dL (3.2-5.0); BILIRUBIN, TOTAL 0.4 mg/dL (0.2-1.3); CREATININE 1.8 mg/dL (0.7-1.3); POTASSIUM 4.4 mmol/l (3.5-5.1); TOTAL PROTEIN 5.9 g/dL (6.3-8.2)
[2024-11-14 00:15] VITALS: BP 124/63
[2024-11-14 04:02] VITALS: BP 130/51
[2024-11-14 05:03] VITALS: BP 130/51
[2024-11-14 05:49] LABS: BASO% 1.2 % (0-3); EOS% 7.4 % (0-8); HEMATOCRIT 28.6 % (39.0-50.0); HEMOGLOBIN 9.2 g/dl (14.0-18.0); IMMATURE GRANULOCYTES 0.5 % (0.0-5.0); LYMPH% 24.7 % (15-41); MEAN CELL VOLUME 86.4 fL CALC (80.0-100.0); MEAN CORPUSCULAR HGB 27.8 pG CALC (26.0-32.0); MEAN CORPUSCULAR HGB CONC 32.2 g/dL CAL (32.0-36.0); MONO% 13.4 % (2-13); NEUT# 3.98 thou/uL (1.82-7.42); NEUT% 52.8 % (42-76); RED BLOOD COUNT 3.31 mill/uL (4.70-6.10); RED CELL DISTRI WIDTH 13.2 % (11.5-15.5)
[2024-11-14 06:07] LABS: ALBUMIN 3.6 g/dL (3.2-5.0); BILIRUBIN, TOTAL 0.3 mg/dL (0.2-1.3); CREATININE 1.9 mg/dL (0.7-1.3); MAGNESIUM 1.8 mg/dL (1.6-2.3); POTASSIUM 4.6 mmol/l (3.5-5.1); TOTAL PROTEIN 6.5 g/dL (6.3-8.2)
[2024-11-14 07:20] VITALS: BP 125/67
[2024-11-14 08:47] VITALS: BP 125/67
== END 2024-11-14 12:12 | disposition home health service (06) | DRG 616 ==
LOC: ED 13:34 → ED-I 15:50 → ED 16:13 → MS2 16:14 → ICU 16:14 → MS2 11-07 17:58
PROVIDERS: Family Medicine; Nurse Practitioner Family; ADMIT Internal Medicine; ATTEND Internal Medicine
PROC: 02HV33Z Insertion of Infusion Device into Superior Vena Cava, Percutaneous Approach (ICD-10-PCS; 2024-11-07)
PROC: 0Y6N0Z4 Detachment at Left Foot, Complete 1st Ray, Open Approach (ICD-10-PCS; principal; 2024-11-10)
PROC: 0Y6N0Z5 Detachment at Left Foot, Complete 2nd Ray, Open Approach (ICD-10-PCS; 2024-11-10)
PROC: 0Y6N0Z6 Detachment at Left Foot, Complete 3rd Ray, Open Approach (ICD-10-PCS; 2024-11-10)
PROC: 0Y6N0Z7 Detachment at Left Foot, Complete 4th Ray, Open Approach (ICD-10-PCS; 2024-11-10)
PROC: 0L8P3ZZ Division of Left Lower Leg Tendon, Percutaneous Approach (ICD-10-PCS; 2024-11-10)
PROC: 0HXNXZZ Transfer Left Foot Skin, External Approach (ICD-10-PCS; 2024-11-10)
PROC: B518ZZA Fluoroscopy of Superior Vena Cava, Guidance (ICD-10-PCS; 2024-11-10)
DX: E11.10 Type 2 diabetes mellitus with ketoacidosis without coma (principal); K85.90 Acute pancreatitis without necrosis or infection, unspecified; L97.428 Non-pressure chronic ulcer of left heel and midfoot with other specified severity; L03.116 Cellulitis of left lower limb; M86.8X7 Other osteomyelitis, ankle and foot; L02.612 Cutaneous abscess of left foot; E11.69 Type 2 diabetes mellitus with other specified complication; E11.621 Type 2 diabetes mellitus with foot ulcer; E11.610 Type 2 diabetes mellitus with diabetic neuropathic arthropathy; I12.9 Hypertensive chronic kidney disease with stage 1 through stage 4 chronic kidney disease, or unspecified chronic kidney disease; E11.22 Type 2 diabetes mellitus with diabetic chronic kidney disease; N18.32 Chronic kidney disease, stage 3b; E66.9 Obesity, unspecified; T38.3X6A Underdosing of insulin and oral hypoglycemic [antidiabetic] drugs, initial encounter; Z91.128 Patient's intentional underdosing of medication regimen for other reason; Z89.511 Acquired absence of right leg below knee; Z89.422 Acquired absence of other left toe(s); Z68.32 Body mass index [BMI] 32.0-32.9, adult; Z79.899 Other long term (current) drug therapy; Z96.41 Presence of insulin pump (external) (internal); Z20.822 Contact with and (suspected) exposure to COVID-19
CPT/HCPCS: J0360; J0692; J0696; J0878; J1171; J1815; J2405; J3370; J3475

== ENCOUNTER 2024-12-08 13:23 | Emergency (ER) | payer MEDICARE ==
[~2024-12-08] VITALS: Ht 180.3 cm; Wt 112.0 kg
[2024-12-08] VITALS (7 sets, daily range): BP systolic 126–172; BP diastolic 70–86
[~2024-12-08 13:23] MED LIST changes: +CEFTRIAXONE2 GM IV; +DAPTOMYCIN/SODI1 IN2 IV; +DULOXETINE HCL30 MG PO; +DULOXETINE HCL60 MG PO; +HUMULIN R500 UNIT/M; +INSULIN PUMP
[2024-12-08] MEDS ORDERED: ALTEPLASE, RECOMBINANT 2 MG/VIAL IV ONE (14:20)
== END 2024-12-08 16:05 | disposition home or self-care (01) ==
LOC: ED 13:23
DX: T82.594A Other mechanical complication of infusion catheter, initial encounter (principal); Y83.8 Other surgical procedures as the cause of abnormal reaction of the patient, or of later complication, without mention of misadventure at the time of the procedure; I12.9 Hypertensive chronic kidney disease with stage 1 through stage 4 chronic kidney disease, or unspecified chronic kidney disease; E11.22 Type 2 diabetes mellitus with diabetic chronic kidney disease; N18.9 Chronic kidney disease, unspecified; I1A.0 Resistant hypertension; Z89.511 Acquired absence of right leg below knee; E11.621 Type 2 diabetes mellitus with foot ulcer; L97.529 Non-pressure chronic ulcer of other part of left foot with unspecified severity
CPT/HCPCS: J2997